=== PATIENT | male | born 1965 | race Caucasian/White ===

== ENCOUNTER 2024-05-15 05:19 | Emergency (ER) | payer MEDICAID, SELFPAY ==
[2024-05-15 05:24] VITALS: PULSE 107; RESP 20; O2SAT 97; BMI 25.1
--- NOTE | 2024-05-15 05:24 | PD.EDRME ---
Rapid Medical Screening Exam RME Arrival date/time: 05/15/24 05:19 Chief Complaint: Chest Pain Time Seen by Provider: 05/15/24 05:23 Vital signs reviewed by provider: Yes RME Narrative: 58-year-old male with history of GERD, methamphetamine abuse in the past coming in by ambulance from home for recurrent chest pain. The patient had pain last week that lasted only 5 minutes and then went away on its own. Today the patient has increase in pain. EMS reports that the patient was given aspirin, nitro glycerin. Patient did use methamphetamine today. I have greeted and performed a focused initial assessment of this patient. A comprehensive ED assessment and evaluation of the patient, analysis of all test results, and completion of the medical decision making process will be conducted by additional ED providers.
[2024-05-15 05:30] VITALS: BP 126/78; PULSE 111; RESP 20; TEMP 36.5; O2SAT 94
--- NOTE | 2024-05-15 05:44 | XR_ITS ---
Examination: AP chest single view Technique : AP portable upright chest single view Exam date and time: May 15, 2024 0603 hrs. Comparison July 19, 2019 Indications: Onset chest pain today Findings: Normal heart size. No pneumonia or pulmonary edema. Moderate osteopenia Impression: No pneumonia or pulmonary edema
[2024-05-15 06:26] LABS: Basophils # (Auto) 0.1 Thou/mm3 (0.0-0.2); Basophils % (Auto) 1 % (0-2.5); Eosinophils # (Auto) 0.2 Thou/mm3 (0.0-0.5); Eosinophils % (Auto) 1 % (0-10); Hematocrit 44.5 % (41.0-53.0); Hemoglobin 15.5 g/dL (13.5-16.0); Immature Granulocytes % (Auto) 1 % (0-0); Immature Granulocytes Auto 0.09 Thou/mm3 (0.00-0.00); Lymphocytes # (Auto) 1.7 Thou/mm3 (1.0-4.8); Lymphocytes % (Auto) 13 % (10-50); Mean Corpuscular HGB Conc 34.8 g/dl (31.0-37.0); Mean Corpuscular Hemoglobin 31.8 pg (25.0-35.0); Mean Corpuscular Volume 91 fL (80-100); Monocytes # (Auto) 1.1 Thou/mm3 (0.0-0.8); Monocytes % (Auto) 8 % (0-12); Neutrophils # (Auto) 9.8 Thou/mm3 (1.8-7.7); Neutrophils % (Auto) 76 % (37-80); Nucleated Red Blood Cell % 0 /100 WBC (0); Platelet Count 301 Thou/mm3 (140-440); Red Blood Count 4.88 Miln/mm3 (4.50-5.90); White Blood Count 12.8 Thou/mm3 (3.8-10.6)
--- NOTE | 2024-05-15 06:55 | PD.EDCHEST ---
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 the pain located on the lower chest, radiate to the right side, diffuse, mainly localized to the epigastric area, provoked by food, and he feels that the food get stuck in his chest. it has no relation to any activity and it happened at rest. It is associated with worsening of GERD. and chills however no palpitation, syncope or pre-syncope. and orthopnea or PND. He mentioned that recently has been having a lot of stress [place], before presentation. Patient was given aspirin and nitroglycerin by EMS. Related Data Home Medications ?Medication ?Instructions ?Recorded ?Confirmed allopurinol 100 mg tablet 100 mg PO QDAY 09/10/19 12/03/21 omeprazole magnesium 20 mg 20 mg PO QDAY 09/10/19 12/03/21 tablet,delayed release (Prilosec OTC) Previous Rx's ?Medication ?Instructions ?Recorded hydrocodone 5 mg-acetaminophen 325 1 tab PO BID PRN pain #20 tabs 02/08/23 mg tablet pantoprazole 40 mg tablet,delayed 40 mg PO QDAY #14 tabs 05/15/24 release Allergies Allergy/AdvReac Type Severity Reaction Status Date / Time indomethacin Allergy Intermediate Rash Verified 02/08/23 13:21 ED Exam Narrative Physical exam: GEN: AOx3, able to speak full sentences HEENT: NC/AC, oral mucosa moist, neck supple CVS: RRR, S1-S2 present, mildly tachycardic no murmurs appreciated RESP: CTAB GI: soft,non distended, non tender, NBS MSK: able to move all 4 limbs, no lower extremity edema SKIN: warm and dry 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 Course Quality Measures none Orders Category Date Time Status EKG (ED ONLY) *Do not use* NOW Care 05/15/24 05:33 Completed EKG (ED Only) Stat Exams 05/15/24 05:33 Ordered XR chest 1V portable Stat Exams 05/15/24 05:44 Completed CBC Stat Lab 05/15/24 05:20 Completed Comprehensive Metabolic Panel Stat Lab 05/15/24 05:20 Completed Drug Screen,Urine Stat Lab 05/15/24 05:44 Ordered Magnesium Stat Lab 05/15/24 05:20 Completed Troponin I Stat Lab 05/15/24 05:20 Completed Urinalysis Stat Lab 05/15/24 05:44 Ordered Sucralfate [Carafate] Med 05/15/24 06:54 Discontinued 1 gm PO X1 ONE Vital Signs Vital signs: Vital Signs Temperature 97.7 F 05/15/24 05:30 Pulse Rate 111 H 05/15/24 05:30 Respiratory Rate 20 05/15/24 05:30 Blood Pressure 126/78 05/15/24 05:30 Pulse Oximetry (%) 94 L 05/15/24 05:30 Oxygen Delivery Method Room Air 05/15/24 05:30 Chest Pain MDM Narrative MDM Narrative:: Patient pain has subsided, EKG was negative for any ischemic changes, or arrhythmia, CXr -ve for any pneumothorax or mediastainal widening. Trops are normal, patient refused to give a urine sample. Also his symptoms could be induced by esophgeal spasms as the patient reported that he feels the food get stuck in his throat, and the pain can be triggered by food. Patient data External records reviewed:: [facility] previous records Clinical information provided by:: patient and EMS Social determinants that could affect healthcare access:: substance use Patient has the following chronic illnesses:: PTSD UC METH ABUSE How is presenting disease/condition affected by chronic disease/condition?: exacerbated by Evaluation data The following diagnostics were reviewed and interpreted by me:: lab results, radiology exam(s) and EKG tracing(s) Lab and/or radiology exams considered but not ordered:: NONE Interpretation Summary: ESOPHAGEAL SPASM GERD GASTERITIS ATYPICAL CHEST PAIN Medications / Prescriptions Medications or Prescriptions considered but not ordered:: NONE Medication administrations:: Medication Administration History Discontinued Medications Sucralfate (Sucralfate 1 Gm Tablet) 1 gm PO X1 ONE Stop: 05/15/24 06:55 ABOVE IF GIVEN Consultations Consultation(s) initiated? (list below): No Diagnosis Most likely diagnosis given after review of the tests above:: ESOPHYGEAL SPASM Admission Indicated Admission indicated?: not indicated Admission Request Was there a request for admission?: No Disposition Plan Disposition Plan: Discharge Discharge Attestation Discharge Attestation: The patient and all family members were given an opportunity to ask questions and understood the discharge instructions. Discharge instructions specifically effects, indications for sooner follow up or return to the emergency department, and the expected course of current diagnosis. Patient condition: Stable Discharge Plan Plan Patient Disposition: HOME (Self Care) Patient condition on transfer: Stable Prescriptions/Referrals Prescriptions/Med Rec: New pantoprazole 40 mg tablet,delayed release (DR/EC) 40 mg PO QDAY Qty: 14 0RF No Action allopurinol 100 mg Tablet 100 mg PO QDAY omeprazole magnesium [Prilosec OTC] 20 mg Tablet,Delayed Release (Dr/Ec) 20 mg PO QDAY hydrocodone-acetaminophen 5-325 mg tablet 1 tab PO BID MDD 10 PRN (Reason: pain) Qty: 20 0RF Problem List Clinical Impression: Atypical chest pain Patient/Caregiver Discharge Instructions Print Language: Cambodian Stand Alone Forms: [facility] Award Info., Patient Portal Info Letter
[2024-05-15 07:01] LABS: Alanine Aminotransferase 17 U/L (10-49); Albumin, Serum 4.5 gm/dL (3.4-4.8); Alkaline Phosphatase 96 U/L (46-116); Anion Gap 6 (7-16); Aspartate Amino Transferase 16 U/L (0-34); BUN/Creatinine Ratio 11 Ratio (12-20); Bilirubin,Total 0.5 mg/dL (0.3-1.2); Blood Urea Nitrogen 13 mg/dL (9-23); Calcium 9.7 mg/dL (8.3-10.6); Calcium (Corrected) 9.7 mg/dL (8.5-10.1); Carbon Dioxide 23.9 mMol/L (20.0-31.0); Chloride 107 mMol/L (98-107); Creatinine (Component) 1.2 mg/dL (0.6-1.3); Estimated Creatinine Clearance 65.5 mL/min (>60); Globulin 2.3 gm/dL (2.3-3.5); Glucose 134 mg/dL (74-106); Osmolality,Calculated 275 (275-295); Potassium 3.9 mMol/L (3.4-5.1); Sodium 137 mMol/L (136-145); Total Protein 6.8 gm/dL (5.7-8.2); Troponin I < 0.020 ng/mL (0.0-0.045); eGFR > 60 See Note
--- NOTE | 2024-05-15 07:17 | PC.NURSE ---
Assume care for this 58 year male and got report from Karma RN. Pt was made aware that we still need a urine sample in which Pt stated, I dont want to give a urine sample. Pt was made of the importance of the urine sample,but still refuse. Jossy vincent made aware.
[2024-05-15] MEDS: SUCRALFATE 1 GM TABLET PO (07:55)
[2024-05-15 08:07] VITALS: BP 114/73; PULSE 82; RESP 16; TEMP 36.7; O2SAT 96
== END 2024-05-15 08:10 | disposition home or self-care (01) ==
PROVIDERS: Emergency Medicine; Emergency Provider Emergency Medicine; PCP Physician Assistant
DX: R07.89 Other chest pain (principal); K21.9 Gastro-esophageal reflux disease without esophagitis; K51.90 Ulcerative colitis, unspecified, without complications; F15.10 Other stimulant abuse, uncomplicated; F43.10 Post-traumatic stress disorder, unspecified; F41.9 Anxiety disorder, unspecified
CPT/HCPCS: 36415; 71045; 80053; 80307; 81001; 83735; 84484; 85025; 93005; 99283; A9270

== ENCOUNTER 2024-07-20 03:52 | Emergency (ER) | payer MEDICAID, SELFPAY ==
--- NOTE | 2024-07-20 03:59 | EDNOTE_ITS ---
ED Medical Clearance RME/HPI General Chief complaint: Medical Clearance Stated complaint: MEDICAL CLEARANCE Time Seen by Provider: 07/20/24 04:12 Source: patient and police Arrival date/time: 07/20/24 03:52 Mode of arrival: ambulatory Limitations: no limitations RME / HPI RME / HPI Narrative: Dr. Payne?s Main ED Evaluation: The patient is a 59-year-old male who was brought to the emergency department by law enforcement for medical clearance prior to incarceration. He presents with multiple superficial lacerations over the right fingers. The patient reports that he sustained the injuries after smashing an object but is unable to provide further details regarding the mechanism of injury. He states that he is unable to make a fist with the affected hand. The patient denies any other medical complaints, including pain in other areas, numbness, tingling, weakness, or loss of function beyond the right hand. No additional injuries or associated symptoms are reported at this time. Related Information Home Medications ?Medication ?Instructions ?Recorded ?Confirmed allopurinol 100 mg tablet 100 mg PO QDAY 09/10/19 12/03/21 omeprazole magnesium 20 mg 20 mg PO QDAY 09/10/19 12/03/21 tablet,delayed release (Prilosec OTC) Previous Rx's ?Medication ?Instructions ?Recorded hydrocodone 5 mg-acetaminophen 325 1 tab PO BID PRN pain #20 tabs 02/08/23 mg tablet Allergies Allergy/AdvReac Type Severity Reaction Status Date / Time indomethacin Allergy Intermediate Rash Verified 02/08/23 13:21 Review of Systems Review of Systems Systems Reviewed: All systems reviewed, normal except as documented Past Medical History Past Medical History RESPIRATORY: Positive Chronic Obstructive Pulmonary Disease (COPD) (unknown) and Asthma MUSCULOSKELETAL: Positive Musculoskeletal Disorders and Gout PSYCHO/SOCIAL: Positive Psychiatric Problems, Schizophrenia, Recreational Drug Use and Post Traumatic Stress Disorder Social History SMOKING STATUS: Never smoker SUBSTANCE USE: methamphetamine ED Exam Narrative Physical exam: GENERAL APPEARANCE: AxOx4, generally well-appearing, no acute distress. HEENT: NC, AT. MMM. EOMI, clear conjunctiva, oropharynx clear. NECK: Supple without lymphadenopathy. No stiffness or restricted ROM. HEART: Normal rate and regular rhythm, normal S1/S1, no m/r/g LUNGS: CTAB, moving air well. No crackles or wheezes are heard. ABDOMEN: Soft, nontender, nondistended with good bowel sounds heard. BACK: No midline C/T/L spine pain or deformity, No CVAT, no obvious deformity. EXTREMITIES: Without cyanosis, clubbing or edema. Multiple superficial lacerations over the right fingers. There is some crepitus and crush component over the right thumb and right ring fingers. MUSCULOSKELETAL: FROM of all major joints, no chest tenderness NEUROLOGICAL: Grossly nonfocal. Alert and oriented, moving all 4 extremities. CN not formally tested but appear grossly intact. Observed to ambulate with normal gait. Skin: Warm and dry without any rash. General Limitations: Present no limitations Course Quality Measures none Orders Category Date Time Status XR hand RT 2V Stat Exams 07/20/24 04:13 Taken Ketorolac Inj [Toradol Inj] Med 07/20/24 04:13 Discontinued 30 mg IM X1 ONE Vital Signs Vital signs: Vital Signs Temperature 98.0 F 07/20/24 04:45 Respiratory Rate 18 07/20/24 04:45 Blood Pressure 138/89 H 07/20/24 04:45 Pulse Oximetry (%) 97 07/20/24 04:45 Oxygen Delivery Method Room Air 07/20/24 04:45 Medical Clearance MDM Narrative MDM Narrative:: Mr. Kenyon is a right-handed gentleman who presents with several superficial lacerations over the palmar aspect of his right digits 1-4 and 5 that are over 6 hours old and outside the window of repair. they are superficial and are amenable to wound cleaning and simple dressings. Due to the blood/crush injury, x-ray of the hand was done which shows no fracture or dislocation. Xra shows a possible small, sub millimeter FB near the wound on the inner aspect of his right thumb. This is not amenable to removal given it is very small, and the potential critical structures around this inner junction of his thumb. At this point we will err towards copious wound irrigation and dressings. Patient's tetanus is up-to-date. ----- scribe Attestation: Brittny Mcneal, am scribing for and in the presence of Dr. Payne. Provider Notation: Although this document has been carefully reviewed, there may still be some phonetic and other typographical errors. These errors are purely grammatical due to imperfections in the software program and should not be construed in any way to compromise the substance of the patient's medical care during this visit. Patient data External records reviewed:: [facility] previous records Clinical information provided by:: patient and law enforcement Social determinants that could affect healthcare access:: none Patient has the following chronic illnesses:: See PMH How is presenting disease/condition affected by chronic disease/condition?: uneffected by Evaluation data The following diagnostics were reviewed and interpreted by me:: lab results Lab and/or radiology exams considered but not ordered:: n/a Interpretation Summary: See narrative Medications / Prescriptions Medications or Prescriptions considered but not ordered:: n/a Medication administrations:: Medication Administration History Discontinued Medications Ketorolac Tromethamine (Ketorolac Inj 60 Mg/2 Ml Vial) 30 mg IM X1 ONE Stop: 07/20/24 04:14 Last Admin: 07/20/24 04:56 Dose: Not Given Documented By: AC Non-Admin Reason: Patient Refused as above, if any Consultations Consultation(s) initiated? (list below): No Diagnosis Medical Clearance Differential Diagnosis: other (Laceration, tendon injury, finger fracture) Most likely diagnosis given after review of the tests above:: See clinical impression below Admission Indicated Admission indicated?: not indicated Admission Request Was there a request for admission?: No Disposition Plan Disposition Plan: Discharge Discharge Attestation Discharge Attestation: The patient and all family members were given an opportunity to ask questions and understood the discharge instructions. Discharge instructions specifically effects, indications for sooner follow up or return to the emergency department, and the expected course of current diagnosis. Patient condition: Stable Discharge Plan Plan Patient Disposition: Halfway/Court/Law Prescriptions/Referrals Prescriptions/Med Rec: No Action allopurinol 100 mg Tablet 100 mg PO QDAY omeprazole magnesium [Prilosec OTC] 20 mg Tablet,Delayed Release (Dr/Ec) 20 mg PO QDAY hydrocodone-acetaminophen 5-325 mg tablet 1 tab PO BID MDD 10 PRN (Reason: pain) Qty: 20 0RF Problem List Clinical Impression: Multiple lacerations Patient/Caregiver Discharge Instructions Education Materials: ED Wound Care Additional Instructions: Follow-up with facility provider for wound recheck. Print Language: [place] Korean
--- NOTE | 2024-07-20 04:13 | XR_ITS ---
Examination: Hand, right 2 views Technique: Hand AP, lateral 2 views Date and time of exam: July 20, 2024 at 0419 hours INDICATIONS: Injury to the hand today, hand pain FINDINGS: No acute fracture No dislocation No foreign body IMPRESSION: No acute fracture
[2024-07-20 04:45] VITALS: BP 138/89; RESP 18; TEMP 36.7; O2SAT 97
--- NOTE | 2024-07-20 04:50 | PC.NURSE ---
wounds to R hnd cleaned and dressing applied by HYUN Manzano.
== END 2024-07-20 05:00 ==
LOC: SERX 04:58
PROVIDERS: Emergency Provider Emergency Medicine
DX: Z02.89 Encounter for other administrative examinations (principal); S61.011A Laceration without foreign body of right thumb without damage to nail, initial encounter; S61.214A Laceration without foreign body of right ring finger without damage to nail, initial encounter; S61.210A Laceration without foreign body of right index finger without damage to nail, initial encounter; S61.216A Laceration without foreign body of right little finger without damage to nail, initial encounter; S61.212A Laceration without foreign body of right middle finger without damage to nail, initial encounter; X58.XXXA Exposure to other specified factors, initial encounter
CPT/HCPCS: 73120; 99283